=== PATIENT | male | born 1960 | race Caucasian/White ===

== ENCOUNTER 2024-02-19 10:04 | Outpatient (CLI) | payer BC, SELFPAY ==
--- NOTE | 2024-02-19 10:15 | FL_ITS ---
Patient: VALENTÍN BANKS Facility:?[facility] Patient ID:?[id number] Site Patient ID:?[id number]. Site :?[id number] Study:?XRay-Hip Left Injection under fluoro DrJohn to READ-02/19/2024 11:11:40 AM Ordering Physician:LATOYA Final Report: Indication: Osteoarthritis,PAIN Procedure : Informed consent was obtained. The site was marked. Time-out was performed. The skin of the left hip was cleansed with ChloraPrep. A sterile drape was placed. 8 cc of 1 percent lidocaine was administered for superficial anesthesia. Subsequently a 22 gauge spinal needle was introduced into the left hip joint under intermittent fluoroscopic guidance. Subsequently 7 cc 1 percent lidocaine and 2 cc 40 milligram/cc Depo-Medrol then injected into the left hip joint. The needle was removed and hemostasis achieved with direct pressure. A dressing was placed. The patient tolerated the procedure well without immediate complication. Total fluoroscopy time 10 seconds. Impression: Successful fluoroscopically guided left hip injection with 80 milligrams of Depo-Medrol. Dictated by Jose Lee MD @ 02/19/2024 12:32:22 PM Signed by:?Jose Lee MD @02/19/2024 12:32:22 PM (Electronic Signature)
== END 2024-02-19 10:05 | disposition home or self-care (01) ==
LOC: RAD 10:05
PROVIDERS: PCP Student in an Organized Health Care Education/Training Program; Visit Provider Orthopaedic Surgery Sports Medicine
DX: M16.12 Unilateral primary osteoarthritis, left hip (principal)
CPT/HCPCS: 20610; 77002; Q9966

== ENCOUNTER 2024-02-26 09:45 | Outpatient (RCR) | payer BC, SELFPAY ==
--- NOTE | 2024-02-05 11:58 | PT.OPEX ---
PT [facility] Eval PT [facility] Outpatient Eval Start: 02/04/24 17:14 Freq: Status: Active Protocol: Document 02/05/24 07:07 MLS (Rec: 02/05/24 11:56 MLS [id number]) E-signed By Angelia Rojas DPT Physical Therapy Outpatient Evaluation Insurance Information Recert Due Date 05/04/24 Insurance Name Medicare B,Blue Cross/Blue [employer] Medical Diagnosis M16.12 Unilateral primary OA, left hip Treating Diagnosis Left hip pain Referring MD Dr. Collins Subjective Subjective Patient is a 63 year old male who presents to physical therapy with signs and symptoms consistent with left hip pain. He states that he had an xray which showed OA. He reports that he has not had an injection but is considering it. He states that some days are worse than others. He is taking Tylenol Arthritis and is having to take them less than before. He states that he has had this issue for a long time, but then it would get better. He states that one day he was running, and the pain just didn't get better. That was about 6 weeks ago. He states that he is doing some back stretches which helps. He states that he is using the elliptical but would like to get back to running. He will get pain in his left low back and sometimes in the left lateral thigh. Aggravating factors include: running, squatting, sleeping, getting in and out of car, lifting. Alleviating factors include: Tylenol Arthritis. No complaints of numbness and tingling. Current exercise incudes the elliptical and upper body strength training. Significant past medical history includes diabetes and hypertension. Patient would like to learn how to keep the pain at bay and return to running through physical therapy sessions. 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 Objective Other/Pertinent Objective KNEE ROM Grossly tested WNL B HIP ROM Right: Grossly tested WNL Left: Flexion: 95 Internal Rotation: 10 External Rotation: 30 Abduction: 40 LLE MMT: Hip flexion: R 4/5 L 4/5 Hip abduction: R 4/5 L 4/5 Hip extension: R 4/5 L 4/5 Knee flexion: R 5/5 L 5/5 Knee extension: R 5/5 L 5/5 SPECIAL TEST -Carias Compression: negative B -Hip quadrant test: negative B -LEEANNE: negative, pain in left hip -FADIR: negative, pain in left hip -Trochanteric Bursitis Test- Bursitis: negative B -Straight Leg Raise: negative B JOINT MOBILITY/PALPATION No tenderness noted to IT-band or piriformis TX: Access Code: [email or web address] URL: [email or web address] Device/ Date: 02/05/2024 Prepared by: Angelia Rojas Exercises - Supine Bridge with Resistance Band - 1 x daily - 7 x weekly - 3 sets - 10 reps - Hip Abduction with Resistance Loop - 1 x daily - 7 x weekly - 3 sets - 10 reps - Hip Extension with Resistance Loop - 1 x daily - 7 x weekly - 3 sets - 10 reps Functional Test Performed & Score 46/80 A score increase of 6 points shows a significant improvement in lower extremity function. Assessment Assessment/Impression Pt is a 63 year old male who presents with concerns of left hip pain. Patient also has notable objective findings including limited ROM, tenderness to palpation, and decreased strength which are also likely contributing to the problem. Patient is a good candidate for skilled therapy to target deficits described above. Skilled PT intervention is necessary for use of therapeutic exercise manual therapy, neuromuscular re- education, gait training, and therapeutic activity. Functional impairments include difficulty with: standing, walking, exercising and ADLs. See appropriate sections of PT eval for complete list of goals and POC. D/C plan and criteria is for pt to achieve the goals as listed below or until max rehab potential is met. Pt was agreeable with plan of care and goals established. He is considering an injection as well. Primary Functional Limitations standing walking exercising ADLs sleeping on left side Plan of Care Rehabilitation Potential Good Physical Therapy Goals Within 10-12 weeks: 1.Pt will demonstrate independence in performance of home exercise program with the use of video and/or handouts in order to optimize functional mobility and reduce risk for re-injury. 2.Pt will demonstrate consistent HEP compliance to ensure progress in reaching established goals during course of care. 3.Patient will be able to stand and work for up to an 8 hour shift with <2/10 pain. 4.Patient will report pain levels <2/10 with all activities in order to improve functional mobility at home, work and during functional leisure activities. 5.Patient is able to sleep without waking more than one time due to pain in a 6-8 hour time frame. 6.Patient will be able to walk up to one mile without pain. 7.Patient will be able to bend and lift household items from the floor to shoulder height to perform ADLs without pain. 8.Pt will be able to ascend/ descend 1 flight of stairs in order to perform ADLs pain free. 9.Pt will exhibit 5 pt improvement in Lower extremity functional scale to demonstrate functional improvement and progress towards goals. Coordination/Communication With Referral Source Treatment Plan/Direct Interventions Manual Therapy,Neuromuscular Re-ed,Therapeutic Activities, Therapeutic Exercises, Ultrasound Patient Will Be Discharged From Therapy Independently Progressing Evaluation Billing Untimed Code Treatment Minutes 30 Complexity Low Certification Information Physician Comment/Change : Physician NPI Number #
== END 2024-05-05 09:43 | disposition home or self-care (01) ==
PROVIDERS: PCP Student in an Organized Health Care Education/Training Program; Visit Provider Orthopaedic Surgery Sports Medicine
DX: M16.12 Unilateral primary osteoarthritis, left hip (principal); Z51.89 Encounter for other specified aftercare
CPT/HCPCS: 97110; 97161

== ENCOUNTER 2024-07-16 11:03 | Outpatient (CLI) | payer BC, SELFPAY ==
--- NOTE | 2024-07-16 11:15 | CRLHL7_ITS ---
For Patients: As a result of the Century Cures Act, medical imaging exams and procedure reports are released immediately into your electronic medical record. You may view this report before your referring provider. If you have questions, please contact your health care provider. Indication: Left hip pain Procedure : Informed consent was obtained. The site was marked. Time-out was performed. The skin of the left hip was cleansed with ChloraPrep. A sterile drape was placed. 8 cc of 1 percent lidocaine was administered for superficial anesthesia. Subsequently a 22 gauge spinal needle was introduced into the left hip joint under intermittent fluoroscopic guidance. 7 cc of 1 percent lidocaine and 2 cc of 40 milligram/cc Depo-Medrol was then injected into the left hip joint. The needle was removed and hemostasis achieved with direct pressure. A dressing was placed. The patient tolerated the procedure well without immediate complication and was immediately sent to MRI for imaging. Total fluoroscopy time 9 seconds. Impression: Successful fluoroscopically guided left hip injection with 80 milligrams of Depo-Medrol. Dictated by Jose Lee MD @ 07/17/2024 10:10:37 AM (Electronically Signed)
== END 2024-07-16 11:04 | disposition home or self-care (01) ==
LOC: RAD 11:04
PROVIDERS: PCP Student in an Organized Health Care Education/Training Program; Visit Provider Orthopaedic Surgery Sports Medicine
DX: M25.552 Pain in left hip (principal); M16.12 Unilateral primary osteoarthritis, left hip
CPT/HCPCS: 20610; 77002; Q9966

== ENCOUNTER 2024-11-20 10:58 | Outpatient (CLI) | payer BC, SELFPAY ==
--- NOTE | 2024-11-20 11:15 | FL_ITS ---
Patient: VALENTÍN BANKS Facility:?[facility] [place] Patient ID:?[id number] Site Patient ID:?[id number] Site :?1960 Study:?XRay-Hip Left INJECTION TO READ-11/20/2024 12:27:44 PM Ordering Physician:?MARCIAL KUO Final Report: Indication: LEFT HIP Osteoarthritis Comparison: 07/16/2024 Procedure : Informed consent was obtained. The site was marked. Time-out was performed. The skin of the left hip was cleansed with ChloraPrep. A sterile drape was placed. 8 cc of 1 percent lidocaine was administered for superficial anesthesia. Subsequently a 22 gauge spinal needle was introduced into the left hip joint under intermittent fluoroscopic guidance. Injection of 7 cc 1 percent lidocaine and 2 cc 40 milligram/cc Depo-Medrol then performed into the left hip joint. The needle was removed and hemostasis achieved with direct pressure. A dressing was placed. The patient tolerated the procedure well without immediate complication. Total fluoroscopy time 13 seconds. Impression: Successful fluoroscopically guided left hip with 80 milligrams of Depo-Medrol. Dictated by Jose Lee MD @ 11/20/2024 12:39:15 PM Signed by:?Jose Lee MD @11/20/2024 12:39:15 PM (Electronic Signature)
== END 2024-11-20 10:59 | disposition home or self-care (01) ==
LOC: RAD 11:00
PROVIDERS: PCP Student in an Organized Health Care Education/Training Program; Visit Provider Orthopaedic Surgery Sports Medicine
DX: M16.12 Unilateral primary osteoarthritis, left hip (principal)
CPT/HCPCS: 20610; 77002; J1010

== ENCOUNTER 2025-04-02 08:51 | Outpatient (CLI) | payer BC, SELFPAY ==
--- NOTE | 2025-04-02 09:15 | CRLHL7_ITS ---
For Patients: As a result of the Century Cures Act, medical imaging exams and procedure reports are released immediately into your electronic medical record. You may view this report before your referring provider. If you have questions, please contact your health care provider. Indication: Unilateral primary osteoarthritis, left hip Comparison: 11/20/2024 Procedure : Informed consent was obtained. The site was marked. Time-out was performed. The skin of the left hip was cleansed with ChloraPrep. A sterile drape was placed. 8 cc of 1 percent lidocaine was administered for superficial anesthesia. Subsequently a 22 gauge spinal needle was introduced into the left hip joint under intermittent fluoroscopic guidance. Injection of 2 cc nonionic Omnipaque 240 contrast confirmed intra-articular location. Subsequently 7 cc of 1 percent lidocaine and 2 cc of 40 milligram/cc Depo-Medrol then injected into the left hip joint. The needle was removed and hemostasis achieved with direct pressure. A dressing was placed. The patient tolerated the procedure well without immediate complication. Total fluoroscopy time 15 seconds. Impression: Successful fluoroscopically guided left hip injection with 80 milligrams of Depo-Medrol. Dictated by Jose Lee MD @ 04/02/2025 11:39:08 AM (Electronically Signed)
== END 2025-04-02 08:52 | disposition home or self-care (01) ==
LOC: RAD 08:53
PROVIDERS: PCP Student in an Organized Health Care Education/Training Program; Visit Provider Orthopaedic Surgery Sports Medicine
DX: M16.12 Unilateral primary osteoarthritis, left hip (principal)
CPT/HCPCS: 20610; 77002; Q9966

== ENCOUNTER 2025-06-30 06:00 | Day surgery (SDC) | payer BC, SELFPAY ==
[2025-06-30] VITALS (25 sets, daily range): BP systolic 97–170; BP diastolic 67–96; PULSE 54–84; RESP 14–17; TEMP 36.2–37.1; O2SAT 92–98; BMI 29.5
[2025-06-30] MEDS: SODIUM CHLORIDE 0.9 % (FLUSH) 10 ML SYRINGE IVF (06:39)
[2025-06-30] MEDS: LACTATED RINGERS 1000 ML 1,000 ML 100 ML IV ×3 (06:40→10:12)
[2025-06-30] MEDS: OXYCODONE (CR) 10 MG TAB.ER.12H PO (06:56)
[2025-06-30] MEDS: ACETAMINOPHEN 500 MG TABLET 1000 MG PO ×2 (06:56→13:02)
--- NOTE | 2025-06-30 07:06 | SUR.PREOP ---
TIME?OUT:?06 PT/RN/MDA?VERIFICATION?OF?SURGICAL?SITE,?PROCEDURE,?AND?CONSENT OBTAINED?PRIOR?TO?INVASIVE?PROCEDURE.
--- NOTE | 2025-06-30 07:06 | W.PM.H&PU ---
History & Physical Update History & Physical Update H&P Reviewed and patient assessed: No changes noted
[2025-06-30] MEDS: MIDAZOLAM HCL 1 MG/ML inj IVP (07:07)
--- NOTE | 2025-06-30 07:13 | W.PM.NB ---
Nerve Block Nerve Block Time Seen by Provider: 07:10 Date Seen: 06/30/25 Type of block requested by surgeon for post-operative analgesia: JOAN/LFCN Side: left Time out performed: Yes Verification of patient name: Yes Verification of date of : Yes Site marking: site marked Name of person performing procedure: Boby Continuous monitoring Was continuous monitoring of O2 sat, B/P, youth nutritional monitor, recorded every 15 minutes?: Yes Procedure Checklist: sterile prep, needles and gloves Ultrasound guided. Images saved: Yes Medications given in 5ml increments after negative aspiration: Ropivicaine %: 0.5 mL: 30 Needle gauge: 20 Precedex (mcg): 25 Patient tolerated procedure well: Yes Additional comments: Needle noted below psoas tendon needle noted adjacent to LFCN Block Charges Block Charge (with Pro Fee): Other Periph Nerve Block Use of Ultrasound Machine for Block: Yes- US Guidance/pain block
--- NOTE | 2025-06-30 07:14 | P.ANES_ITS ---
Anesthesia Charges Start Date/Time Anesthesia Start Date: 06/30/25 Anesthesia Start Time: 07:28 Stop Date/Time Anesthesia Stop Date: 06/30/25 Anesthesia Stop Time: 09:55 Coding CPT Codes CPT Codes: ANESTH HIP ARTHROPLASTY - 94927 ([id number]) P2 - PATIENT W/MILD SYST DISEASE, QK - SUPPLY COORDINATOR 2-4 CNCRNT ANES PROC, QX - MEDICAL EDITOR SVC W/ MD MED DIRECTION
--- NOTE | 2025-06-30 07:14 | W.ANESCHARGE ---
Anesthesia Charges Start Date/Time Anesthesia Start Date: 06/30/25 Anesthesia Start Time: 07:28 Stop Date/Time Anesthesia Stop Date: 06/30/25 Anesthesia Stop Time: 09:55 Coding CPT Codes CPT Codes: ANESTH HIP ARTHROPLASTY - 67594 ([id number]) P2 - PATIENT W/MILD SYST DISEASE, QK - INSTITUTION LIBRARIAN 2-4 CNCRNT ANES PROC, QX - SNOWMOBILE MECHANIC SVC W/ MD MED DIRECTION
--- NOTE | 2025-06-30 07:15 | CRLHL7_ITS ---
For Patients: As a result of the Cures Act, medical imaging exams and procedure reports are released immediately into your electronic medical record. You may view this report before your referring provider. If you have questions, please contact your health care provider. Indication: Hip replacement surgery Technique: AP hip fluoroscopic image. Fluoroscopy time 48.6 seconds. Findings/Impression: Hardware from a left total hip arthroplasty is in satisfactory position. Dictated by Jose Lee MD @ 06/30/2025 10:13:29 AM (Electronically Signed)
[2025-06-30] MEDS: TRANEXAMIC ACID 100 MG/ML INJ 1000 MG IV (07:40)
--- NOTE | 2025-06-30 09:11 | PM.ORPRC ---
Procedure Note Date of procedure: 06/30/25 Procedure: PREOPERATIVE DIAGNOSIS: 1. Left hip osteoarthritis, severe, primary POSTOPERATIVE DIAGNOSIS: 1. Left hip osteoarthritis, severe, primary PROCEDURE: 1. Left total hip arthroplasty-anterior approach 2. 52088 - intraoperative fluoroscopy up to 1 hour. SURGEON: Dexter Collins MD. CLOTH GRADER SUPERVISOR: Dion Church PA-C; LENNY Ruano - Of note, a skilled respiratory care assistant was critical for this case to aid in patient positioning, tissue retraction, limb manipulation/positioning, dislocation/relocation, patient safety, and closure. ANESTHESIA: Spinal anesthetic EBL: 200 mL IMPLANTS: DePuy J&J uncemented total hip [place] cup size 52, hole eliminator, +4 neutral liner Actis stem, high offset, size 8 -2 mm ceramic 36 mm head. COMPLICATIONS: None evident INDICATIONS: The patient is a pleasant 65-year-old male who has experienced severe left hip pain and difficulty bearing weight. Workup included x-rays which revealed severe osteoarthrosis in the hip. Given the deformity, the dysfunction, and the pain, as well as the failure of nonoperative management, recommendation was made for surgery. FINDINGS: Full-thickness chondral loss diffusely throughout the femoral head and acetabulum. Osteophytes on the femoral head/neck junction and perimeter of the acetabulum. Large effusion upon entering the joint. DESCRIPTION OF PROCEDURE: Following a thorough discussion of risks, benefits, and alternatives consent was obtained and the left hip was marked. The patient was brought to the operating room and placed supine on the operating table. Induction of anesthesia was undertaken. 2 g IV Ancef and 1 g tranexamic acid was administered within 1 hr of incision preoperatively. Proper time-out was performed identifying proper patient, site, procedure. The operative extremity was prepped and draped in the appropriate sterile fashion using ChloraPrep after the patient was positioned on the [place] table with head in neutral alignment and all bony prominences well padded. C-arm fluoroscopic imaging was utilized to confirm proper pelvis rotation and position, and to get true AP films of both the contralateral left, and the affected left hip. This is for comparison. A longitudinal incision was made starting approximately 1 cm distal to the ASIS, and 2-3 cm lateral. The incision was extended distally aiming toward the fibular head. Sharp incision through skin and bovie cautery through the subcutaneous tissue allowed identification of the TFL fascia. This was sharply divided, and the fascia bluntly released from the muscle fibers as we dissected medial. Upon coming to the medial border, we were able to retract the TFL laterally, and penetrated the deeper fascia and identify the crossing circumflex vessels. These were ligated/cauterized. The rectus was elevated from the capsule, and retractors placed laterally and medially along the femoral neck to help with visualization of the capsule. We then performed an inverted T capsulotomy. The capsule was tagged for later repair. Retractors were placed inside the capsule. The femoral neck was visualized after releasing medially down to the lesser trochanter, along the saddle laterally, and up onto the acetabulum. The femoral neck cut was made in line with our preoperative templating. The head was removed in a single piece, and sized. We turned our attention to acetabular preparation. Initially, the labrum was resected from around the perimeter, the pulvinar was excised, allowing us to visualize the false wall. We started the reaming with a 43 mm reamer. This was medialized down to the true wall. We then enlarged our reamers sequentially up to one size less than the selected cup size. We trialed at the same size and found it to have an excellent fit. The selected cup was then opened, inserted, and impacted in line with the goal of 40-45? of abduction, and 20-25? of anteversion. This was confirmed on C-arm fluoroscopic imaging to be in the appropriate/goal position. Once the cup was placed we placed a hole eliminator and a liner consistent with preop planning. Attention was turned to the femoral preparation. The limb was extended, externally rotated, and adducted. The posteromedial capsule was released, as retractors were placed allowing excellent access to the proximal femur. Initially a steam box operator was followed by canal finder followed by various broaches. We broached sequentially up to size noted above, found it to have excellent rotational control, and trialing various heads and necks, revealed that appropriate neck offset, and the above noted head size provided the greatest stability, and yazidi of length, and offset. C-arm fluoroscopic imaging confirmed position of the stem, as well as leg lengths, which were compared with the pre procedure all fluoroscopic images. Trial implants were removed, the real femoral stem inserted, as was the ceramic head. After reducing, the leg was placed through range of motion and stability was confirmed anterior, posterior, and lateral. A 3 min Betadine soak was then performed, and thorough irrigation with normal saline followed. Closure of the capsule was performed with #1 PDS. Bleeding was confirmed to be controlled at this stage, and the TFL fascia was closed with #0 strata fix. Subcutaneous, and subcuticular closure was performed with 2-0 Stratafix and 4-0 Stratafix, respectively. Dressings were applied, and the patient was awoken from anesthesia and transferred the PACU in stable condition. A skilled respiratory care assistant was critical for this case to aid in patient positioning, tissue retraction, proximal femur exposure, limb manipulation/positioning, dislocation/relocation, patient safety, and closure. PLAN: 1. Weight bear as tolerated operative extremity. 2. 23 hr perioperative antibiotics. 3. Ice. 4. PT/OT consults for ambulation assistance/mobility education. 5. Social work consult for discharge planning. 6. DVT prophylaxis with at SCDs and Xarelto x5 days followed by aspirin for a total of 1 month.
--- NOTE | 2025-06-30 09:24 | CRLHL7_ITS ---
For Patients: As a result of the Cures Act, medical imaging exams and procedure reports are released immediately into your electronic medical record. You may view this report before your referring provider. If you have questions, please contact your health care provider. Indication: post op Left KIMMIE Technique: AP hip centered pelvis and lateral view left hip Findings/Impression: Hardware from a left total hip arthroplasty is in satisfactory position. Bone alignment is normal. No sign of acute fracture. Postop changes are within normal limits. Dictated by Jose Lee MD @ 06/30/2025 11:31:19 AM (Electronically Signed)
--- NOTE | 2025-06-30 09:56 | P.ANES_ITS ---
Anesthesia Charges Start Date/Time Anesthesia Start Date: 06/30/25 Anesthesia Start Time: 07:28 Stop Date/Time Anesthesia Stop Date: 06/30/25 Anesthesia Stop Time: 09:55 Coding CPT Codes CPT Codes: ANESTH HIP ARTHROPLASTY - 21418 ([id number]) P2 - PATIENT W/MILD SYST DISEASE, QK - TELEPHONE CLERK TELEGRAPH OFFICE 2-4 CNCRNT ANES PROC, QX - LIFT ELECTRICIAN SVC W/ MD MED DIRECTION
--- NOTE | 2025-06-30 09:56 | W.ANESCHARGE ---
Anesthesia Charges Start Date/Time Anesthesia Start Date: 06/30/25 Anesthesia Start Time: 07:28 Stop Date/Time Anesthesia Stop Date: 06/30/25 Anesthesia Stop Time: 09:55 Coding CPT Codes CPT Codes: ANESTH HIP ARTHROPLASTY - 24575 ([id number]) P2 - PATIENT W/MILD SYST DISEASE, QK - BULK SAUSAGE CASING TIER OFF 2-4 CNCRNT ANES PROC, QX - WARDROBE MANAGER SVC W/ MD MED DIRECTION
--- NOTE | 2025-06-30 10:48 | SUR.PHASEII ---
1025: On entry to Phase II, pt alert and oriented. VSS. Family at the bedside.
--- NOTE | 2025-06-30 10:49 | SUR.PHASEII ---
1047: Xray in room for post op images.
[2025-06-30] MEDS: IBUPROFEN 200 MG TABLET 400 MG PO (11:32)
--- NOTE | 2025-06-30 13:12 | SUR.PHASEII ---
1245: Patient ambulatory to restroom with gait belt, walker, and stand by assist of 2. Patient unable to void. Denies nausea and dizziness. Returned to recliner. VSS Pain 05/13. 1,000 mg Tylenol administered-see eMAR. Ice pack in place on left hip. Call light within reach.
--- NOTE | 2025-06-30 13:24 | SUR.PHASEII ---
Yumiko OT in room with patient.
== END 2025-06-30 15:15 | disposition home or self-care (01) ==
PROVIDERS: PCP Student in an Organized Health Care Education/Training Program; Visit Provider Orthopaedic Surgery Sports Medicine
PROC: (CPT 27130; principal; 2025-06-30 07:15)
DX: M16.12 Unilateral primary osteoarthritis, left hip (principal); G89.18 Other acute postprocedural pain; E11.65 Type 2 diabetes mellitus with hyperglycemia; Z79.84 Long term (current) use of oral hypoglycemic drugs; I10 Essential (primary) hypertension; E78.5 Hyperlipidemia, unspecified
CPT/HCPCS: 27130; 01214; 36415; 64450; 73501; 76000; 76942; 82962; 86850; 86900; 86901; 97110; 97116; 97161; 97165; 97530; 97535; A9270; C1776; J0690; J1100; J2250; J2371; J2405; J2704; J2795; J3010; J7120